=== PATIENT | male | born 1990 | race Caucasian/White ===

== ENCOUNTER 2021-12-27 16:25 | Emergency (ER) | payer BC, SELFPAY ==
[2021-12-27] MEDS ORDERED: Boostrix 0.5 ML (Tdap) VIAL ONE (16:58)
== END 2021-12-27 17:05 | disposition home or self-care (01) ==
LOC: NAV ERS 16:25
DX: S01.01XA Laceration without foreign body of scalp, initial encounter (principal); K21.9 Gastro-esophageal reflux disease without esophagitis; Z79.899 Other long term (current) drug therapy; X58.XXXA Exposure to other specified factors, initial encounter
CPT/HCPCS: 12002; 90715